=== PATIENT | male | born 1955 | race Caucasian/White ===

== ENCOUNTER 2021-10-27 13:48 | Emergency (ER) | payer MEDICARE, OTHER ==
[2021-10-27 15:02] LABS: #Eosinphils 0.1 10x3/uL (0.0-0.5); #Monocytes 0.3 10x3/uL (0.0-1.1); #Neutrophils 3.9 10x3/uL (1.5-8.4); %Basophils 0.4 % (0.0-2.0); %Eosinophils 1.3 % (0.0-6.0); %Lymphocytes 9.6 % (18.0-47.0); %Monocytes 5.3 % (0.0-10.0); Hemoglobin 11.1 g/dL (13.5-17.5); Mean Corpuscular HGB CONC 33.3 g/dL (32.0-36.0); Mean Corpuscular Hemoglobin 29.8 pg (27.0-33.0); Mean Corpuscular Volume 89.3 fl (81.2-95.1); Platelet Count 160 10x3/uL (150-450); RBC Distribution Width 16.2 % (11.5-14.5); Red Blood Cell (RBC) Count 3.73 10x6/uL (4.32-5.72); White Blood Cell (WBC) Count 4.7 10x3/uL (3.5-10.5)
[2021-10-27 15:14] LABS: ALT (SGPT) 19 U/L (8-55); AST (SGOT) 20 U/L (5-34); Alkaline Phosphatase 61 U/L (40-110); Anion Gap 13 mmol/L (10-20); BUN (Urea Nitrogen) 22 mg/dL (8.4-25.7); Bilirubin, Total 0.9 mg/dL (0.2-1.2); Calc. Creatinine Clearance 0 mL/min (70-130); Carbon Dioxide 25 mmol/L (23-31); Chloride 102 mmol/L (98-107); Globulin 2.4 g/dL (2.4-3.5); Glucose 138 mg/dL (80-115); Potassium 4.3 mmol/L (3.5-5.1); Protein, Total 6.4 g/dL (5.8-8.1); Sodium 136 mmol/L (136-145)
[2021-10-27] MEDS ORDERED: Zoledronic Acid 4 MG in Sodium Chloride 0.9% 100 ML IVPB SCH (16:45)
== END 2021-10-27 18:25 | disposition home or self-care (01) ==
LOC: CSHERS 13:48
DX: E83.52 Hypercalcemia (principal); I10 Essential (primary) hypertension; E11.9 Type 2 diabetes mellitus without complications; Z79.899 Other long term (current) drug therapy
CPT/HCPCS: 80053; 84484; 85025; 93005; 96365; 99283; J3489; 36415; J3490

== ENCOUNTER 2022-08-30 14:46 | Outpatient (CLI) | payer MEDICARE, OTHER | END 2022-08-30 14:47 | disposition home or self-care (01) | LOC: CSHRAD 14:46 | PROVIDERS: ATTEND Student in an Organized Health Care Education/Training Program | DX: Z01.818 Encounter for other preprocedural examination (principal); R59.0 Localized enlarged lymph nodes | CPT/HCPCS: 71046 ==

== ENCOUNTER 2022-09-12 12:28 | Outpatient (CLI) | payer MEDICARE, OTHER | END 2022-09-12 12:29 | disposition home or self-care (01) | LOC: CSHCP 12:28 | PROVIDERS: ATTEND Student in an Organized Health Care Education/Training Program | DX: Z01.818 Encounter for other preprocedural examination (principal); J44.9 Chronic obstructive pulmonary disease, unspecified | CPT/HCPCS: 94010; 94726; 94729; 94760 ==

== ENCOUNTER 2022-10-27 22:18 | Inpatient (IN) | payer MEDICARE, OTHER ==
[2022-10-27 23:11] LABS: #Eosinphils 0.1 10x3/uL (0.0-0.5); #Monocytes 0.4 10x3/uL (0.0-1.1); #Neutrophils 2.3 10x3/uL (1.5-8.4); %Basophils 0.9 % (0.0-2.0); %Eosinophils 3.6 % (0.0-6.0); %Lymphocytes 14.5 % (18.0-47.0); %Monocytes 11.3 % (0.0-10.0); %Neutrophils 69.4 % (40.0-75.0); Hemoglobin 6.3 g/dL (13.5-17.5); Mean Corpuscular HGB CONC 30.3 g/dL (32.0-36.0); Mean Corpuscular Hemoglobin 27.6 pg (27.0-33.0); Mean Corpuscular Volume 91.2 fl (81.2-95.1); Mean Platelet Volume 8.4 fl (7.4-10.4); Platelet Count 178 10x3/uL (150-450); RBC Distribution Width 16.6 % (11.5-14.5); Red Blood Cell (RBC) Count 2.28 10x6/uL (4.32-5.72); White Blood Cell (WBC) Count 3.4 10x3/uL (3.5-10.5)
[2022-10-27 23:27] LABS: Anion Gap 11 mmol/L (10-20); BUN (Urea Nitrogen) 33 mg/dL (8.4-25.7); Calc. Creatinine Clearance 0 mL/min (70-130); Calcium 10.2 mg/dL (7.8-10.44); Carbon Dioxide 26 mmol/L (23-31); Chloride 104 mmol/L (98-107); Estimated GFR 56; Glucose 185 mg/dL (80-115); Potassium 4.1 mmol/L (3.5-5.1); Sodium 137 mmol/L (136-145)
[2022-10-27] MEDS ORDERED: Pantoprazole 80 MG, Admixture Fee 1 EACH in Sodium Chloride 0.9% 100 ML IVPB SCH (23:45)
[2022-10-27] MEDS ORDERED: Pantoprazole 40 MG VIAL ONE (23:49)
[2022-10-27] MEDS ORDERED: methylPREDNISolone Sod Succ/PF 125 MG/2 ML VIAL ONE (23:49)
[2022-10-28] MEDS ORDERED: Ondansetron ODT 4 MG TAB PO PRN (00:16)
[2022-10-28] MEDS ORDERED: Ondansetron PF 4 MG/2 ML Vial IVP PRN (00:16)
[2022-10-28] MEDS ORDERED: Glucagon 1 MG/ML KIT IM PRN (00:22)
[2022-10-28] MEDS ORDERED: Dextrose 50% Abboject 50 ML SYRINGE SLOW IVP PRN (00:22)
[2022-10-28] MEDS ORDERED: HumaLOG 300 UNITS/3 ML VIAL SC PRN (00:22)
[2022-10-28] MEDS ORDERED: Dextrose 5% in Water 1,000 ML IV PRN (00:22)
[2022-10-28] MEDS ORDERED: GoLYTELY 4,000 ml Bottle PO SCH (01:00)
[2022-10-28 01:29] VITALS: BMI 24.0
[2022-10-28] MEDS: Sodium Chloride 0.9% 1,000 ML IV SCH ×2 (02:13→13:19)
[2022-10-28 03:10] LABS: Bilirubin Neg (Negative); Blood, Urine Negative (Negative); Clarity Clear (Clear); Glucose, Urine (Dipstick) 50 mg/dL (Negative); Ketone, Urine Negative (Negative); Leukocyte Negative (Negative); Nitrite Negative (Negative); Protein, Urine (Dipstick) Negative (Neg-Trace); Urobilinogen Normal mg/dL (Less than 2)
[2022-10-28 03:18] LABS: Bacteria/HPF None Seen HPF (None Seen); RBC/HPF None Seen HPF (0-3); Squamous Epithelial None Seen HPF (0-3); WBC/HPF 0-3 HPF (0-3)
[2022-10-28 05:38] LABS: PTT 25.7 sec (22.0-33.0); Prothrombin Time 10.8 sec (9.5-12.1)
[2022-10-28 05:43] LABS: ALT (SGPT) 15 U/L (8-55); AST (SGOT) 20 U/L (5-34); Albumin 4.1 g/dL (3.4-4.8); Alkaline Phosphatase 61 U/L (40-110); Anion Gap 17 mmol/L (10-20); BUN (Urea Nitrogen) 30 mg/dL (8.4-25.7); Bilirubin, Total 1.5 mg/dL (0.2-1.2); Calc. Creatinine Clearance 56 mL/min (70-130); Calcium 9.9 mg/dL (7.8-10.44); Carbon Dioxide 21 mmol/L (23-31); Chloride 104 mmol/L (98-107); Estimated GFR 57; Globulin 2.8 g/dL (2.4-3.5); Glucose 243 mg/dL (80-115); Potassium 4.4 mmol/L (3.5-5.1); Protein, Total 6.9 g/dL (5.8-8.1); Sodium 138 mmol/L (136-145)
[2022-10-28 08:03] LABS: Hemoglobin 7.5 g/dL (13.5-17.5)
[2022-10-28] MEDS ORDERED: Non-Formulary Medication 1 EACH (Semaglutide [Ozempic] 1 MG/0.75 ML Pen.Injctr) SQ SCH (09:00)
[2022-10-28] MEDS ORDERED: GoLYTELY 4,000 ml Bottle PO ONE (09:30)
[2022-10-28 11:21] LABS: Hemoglobin 7.6 g/dL (13.5-17.5)
[2022-10-28] MEDS: Pantoprazole 80 MG, Admixture Fee 1 EACH in Sodium Chloride 0.9% 100 ML IVPB SCH (14:00)
[2022-10-28] MEDS ORDERED: Ketamine 50 MG/ML (10ML VIAL) ONE (16:40)
[2022-10-28] MEDS ORDERED: Lidocaine 1% PF 5 ML VIAL ONE (16:44)
[2022-10-28] MEDS ORDERED: Glycopyrrolate 0.2 MG/ML 5 ML SYRINGE ONE (16:44)
[2022-10-28] MEDS ORDERED: PROPOFOL 40 ML ONE (16:44)
[2022-10-28] MEDS ORDERED: Midazolam HCl 2 mg/2 ml Vial ONE (16:44)
[2022-10-28] MEDS ORDERED: PROPOFOL 20 ML ONE (17:24)
[2022-10-29] MEDS: Pantoprazole 80 MG, Admixture Fee 1 EACH in Sodium Chloride 0.9% 100 ML IVPB SCH (01:16)
[2022-10-29] MEDS: Sodium Chloride 0.9% 1,000 ML IV SCH (05:26)
[2022-10-29 05:59] LABS: #Eosinphils 0.1 10x3/uL (0.0-0.5); #Monocytes 0.3 10x3/uL (0.0-1.1); #Neutrophils 2.3 10x3/uL (1.5-8.4); %Basophils 0.6 % (0.0-2.0); %Eosinophils 1.9 % (0.0-6.0); %Lymphocytes 13.7 % (18.0-47.0); %Monocytes 9.5 % (0.0-10.0); Hemoglobin 6.5 g/dL (13.5-17.5); Mean Corpuscular HGB CONC 31.1 g/dL (32.0-36.0); Mean Corpuscular Hemoglobin 27.9 pg (27.0-33.0); Mean Corpuscular Volume 89.7 fl (81.2-95.1); Mean Platelet Volume 9.1 fl (7.4-10.4); Platelet Count 177 10x3/uL (150-450); RBC Distribution Width 16.9 % (11.5-14.5); Red Blood Cell (RBC) Count 2.33 10x6/uL (4.32-5.72); White Blood Cell (WBC) Count 3.2 10x3/uL (3.5-10.5)
[2022-10-29 06:13] LABS: Iron 11 ug/dL (65-175); Iron Binding Capacity, Total 270 mcg/dL (261-462)
[2022-10-29 06:18] LABS: Anion Gap 10 mmol/L (10-20); BUN (Urea Nitrogen) 19 mg/dL (8.4-25.7); Calc. Creatinine Clearance 76 mL/min (70-130); Calcium 7.9 mg/dL (7.8-10.44); Carbon Dioxide 25 mmol/L (23-31); Chloride 110 mmol/L (98-107); Estimated GFR 81; Glucose 144 mg/dL (80-115); Iron 10 ug/dL (65-175); Iron Binding Capacity, Total 274 mcg/dL (261-462); Potassium 3.3 mmol/L (3.5-5.1); Sodium 142 mmol/L (136-145)
[2022-10-29] MEDS ORDERED: Ferrous Sulfate 325 MG TAB PO SCH ×2 (09:00→17:00)
[2022-10-29] MEDS ORDERED: Potassium Bicarbonate/Cit Ac 20 MEQ TAB PO SCH (09:00)
[2022-10-29 16:19] VITALS: BP 157/75; TEMP 98
[2022-10-29 16:30] LABS: Hemoglobin 7.9 g/dL (13.5-17.5)
== END 2022-10-29 17:57 | disposition home or self-care (01) | DRG 378 ==
LOC: CSHERS 22:18 → CSHTELE 10-28 00:49 → OBSVTOIN 10-28 00:49
PROVIDERS: ADMIT Family Medicine; ATTEND Internal Medicine
PROC: 0DJ08ZZ Inspection of Upper Intestinal Tract, Via Natural or Artificial Opening Endoscopic (ICD-10-PCS; principal; 2022-10-28)
PROC: 0DJD8ZZ Inspection of Lower Intestinal Tract, Via Natural or Artificial Opening Endoscopic (ICD-10-PCS; 2022-10-28)
PROC: 30233N1 Transfusion of Nonautologous Red Blood Cells into Peripheral Vein, Percutaneous Approach (ICD-10-PCS; 2022-10-28)
DX: K92.2 Gastrointestinal hemorrhage, unspecified (principal); K51.90 Ulcerative colitis, unspecified, without complications; K59.09 Other constipation; E78.5 Hyperlipidemia, unspecified; I12.9 Hypertensive chronic kidney disease with stage 1 through stage 4 chronic kidney disease, or unspecified chronic kidney disease; E11.22 Type 2 diabetes mellitus with diabetic chronic kidney disease; N18.31 Chronic kidney disease, stage 3a; I25.10 Atherosclerotic heart disease of native coronary artery without angina pectoris; D86.9 Sarcoidosis, unspecified; E83.52 Hypercalcemia; K64.4 Residual hemorrhoidal skin tags; K64.8 Other hemorrhoids; K57.30 Diverticulosis of large intestine without perforation or abscess without bleeding; D50.9 Iron deficiency anemia, unspecified; Z79.82 Long term (current) use of aspirin; Z79.84 Long term (current) use of oral hypoglycemic drugs; Z79.899 Other long term (current) drug therapy; Z98.890 Other specified postprocedural states; Z85.828 Personal history of other malignant neoplasm of skin; Z79.4 Long term (current) use of insulin; Z90.49 Acquired absence of other specified parts of digestive tract
CPT/HCPCS: 36415; 36416; 36430; 80048; 80053; 81001; 82728; 83540; 83550; 83735; 85014; 85018; 85025; 85610; 85730; 86850; 86900; 86901; 93005; 93010; 96365; 96375; 96376; C9113; J2250; J2704; J2930; J3490; J7050; P9016

== ENCOUNTER 2023-05-24 10:33 | Inpatient (IN) | payer MEDICARE, OTHER ==
[2023-05-24 11:40] LABS: #Monocytes 0.5 10x3/uL (0.0-1.1); #Neutrophils 8.6 10x3/uL (1.5-8.4); %Basophils 0.1 % (0.0-2.0); %Eosinophils 0.3 % (0.0-6.0); %Lymphocytes 1.4 % (18.0-47.0); %Neutrophils 92.1 % (40.0-75.0); Hematocrit 21.8 % (38.8-50.0); Hemoglobin 6.8 g/dL (13.5-17.5); Mean Corpuscular HGB CONC 31.2 g/dL (32.0-36.0); Mean Corpuscular Hemoglobin 29.8 pg (27.0-33.0); Mean Corpuscular Volume 95.6 fl (81.2-95.1); Mean Platelet Volume 9.7 fl (7.4-10.4); Platelet Count 187 10x3/uL (150-450); RBC Distribution Width 18.4 % (11.5-14.5); Red Blood Cell (RBC) Count 2.28 10x6/uL (4.32-5.72); White Blood Cell (WBC) Count 9.4 10x3/uL (3.5-10.5)
[2023-05-24 11:54] LABS: ALT (SGPT) 28 U/L (8-55); AST (SGOT) 36 U/L (5-34); Albumin 2.7 g/dL (3.4-4.8); Alkaline Phosphatase 92 U/L (40-110); Anion Gap 15 mmol/L (10-20); BUN (Urea Nitrogen) 60 mg/dL (8.4-25.7); Bilirubin, Total 0.5 mg/dL (0.2-1.2); Calc. Creatinine Clearance 0 mL/min (70-130); Calcium 7.9 mg/dL (7.8-10.44); Carbon Dioxide 20 mmol/L (23-31); Chloride 103 mmol/L (98-107); Estimated GFR 49; Globulin 2.4 g/dL (2.4-3.5); Glucose 122 mg/dL (80-115); Lipase 12 U/L (8-78); Potassium 3.8 mmol/L (3.5-5.1); Protein, Total 5.1 g/dL (5.8-8.1); Sodium 134 mmol/L (136-145)
[2023-05-24 12:01] LABS: Troponin I Less than 0.010 ng/mL (< 0.028)
[2023-05-24] MEDS ORDERED: Ondansetron ODT 4 MG TAB PO PRN (12:50)
[2023-05-24] MEDS ORDERED: Ondansetron PF 4 MG/2 ML Vial IVP PRN (12:50)
[2023-05-24] MEDS ORDERED: Acetaminophen 325 MG TAB PO PRN (12:50)
[2023-05-24] MEDS ORDERED: Glucagon 1 MG/ML KIT IM PRN (12:56)
[2023-05-24] MEDS ORDERED: Dextrose 50% Abboject 50 ML SYRINGE SLOW IVP PRN (12:56)
[2023-05-24] MEDS ORDERED: Dextrose 5% in Water 1,000 ML IV PRN (12:56)
[2023-05-24] MEDS ORDERED: HYDROcodone/Acetaminophen 7.5/325 mg Tablet PO PRN (13:30)
[2023-05-24] MEDS ORDERED: Ipratropium/Albuterol 3 ML NEB NEB PRN (13:41)
[2023-05-24] MEDS ORDERED: Lactated Ringer's 500 ML IV SCH (16:45)
[2023-05-24] MEDS: Albumin 25% 25 GM (100 mL) BOT IVPB SCH ×2 (18:39→23:41)
[2023-05-24 20:21] VITALS: BMI 29.9
[2023-05-25 06:12] LABS: #Monocytes 0.5 10x3/uL (0.0-1.1); #Neutrophils 6.3 10x3/uL (1.5-8.4); %Basophils 0.1 % (0.0-2.0); %Eosinophils 0.1 % (0.0-6.0); %Monocytes 6.4 % (0.0-10.0); %Neutrophils 89.4 % (40.0-75.0); Hematocrit 22.1 % (38.8-50.0); Hemoglobin 7.1 g/dL (13.5-17.5); Mean Corpuscular HGB CONC 32.1 g/dL (32.0-36.0); Mean Corpuscular Hemoglobin 29.8 pg (27.0-33.0); Mean Corpuscular Volume 92.9 fl (81.2-95.1); Mean Platelet Volume 9.7 fl (7.4-10.4); Platelet Count 160 10x3/uL (150-450); RBC Distribution Width 17.9 % (11.5-14.5); Red Blood Cell (RBC) Count 2.38 10x6/uL (4.32-5.72); White Blood Cell (WBC) Count 7.1 10x3/uL (3.5-10.5)
[2023-05-25 06:16] LABS: Anion Gap 17 mmol/L (10-20); BUN (Urea Nitrogen) 59 mg/dL (8.4-25.7); Calc. Creatinine Clearance 67 mL/min (70-130); Calcium 8.1 mg/dL (7.8-10.44); Carbon Dioxide 18 mmol/L (23-31); Chloride 105 mmol/L (98-107); Estimated GFR 54; Glucose 169 mg/dL (80-115); Potassium 3.5 mmol/L (3.5-5.1); Sodium 136 mmol/L (136-145)
[2023-05-25] MEDS: HumaLOG 300 UNITS/3 ML VIAL SC PRN ×2 (06:22→22:06)
[2023-05-25] MEDS ORDERED: Lorazepam 0.5 MG TAB PO PRN (07:16)
[2023-05-25] MEDS ORDERED: Lorazepam 2 MG/ML VIAL SLOW IVP SCH (08:00)
[2023-05-25] MEDS: Pantoprazole 40 MG VIAL IVP SCH ×2 (08:47→21:36)
[2023-05-25] MEDS ORDERED: Morphine 4 MG/ML VIAL SLOW IVP PRN (15:25)
[2023-05-25] MEDS ORDERED: Morphine 2 MG/ML VIAL SLOW IVP PRN (15:25)
[2023-05-25 16:44] LABS: Hematocrit 24.9 % (38.8-50.0)
[2023-05-25] MEDS: Ipratropium/Albuterol 3 ML NEB NEB SCH (19:10)
[2023-05-25] MEDS ORDERED: Zolpidem Tartrate 5 MG TAB PO SCH (21:45)
[2023-05-26] MEDS: Ipratropium/Albuterol 3 ML NEB NEB SCH ×4 (01:10→19:42)
[2023-05-26] MEDS ORDERED: Lorazepam 2 MG/ML VIAL SLOW IVP SCH (02:00)
[2023-05-26] MEDS ORDERED: ALPRAZolam 1 MG TAB PO SCH (05:00)
[2023-05-26] MEDS: HumaLOG 300 UNITS/3 ML VIAL SC PRN ×3 (05:52→20:31)
[2023-05-26 06:11] LABS: #Monocytes 0.5 10x3/uL (0.0-1.1); #Neutrophils 8.3 10x3/uL (1.5-8.4); %Basophils 0.1 % (0.0-2.0); %Eosinophils 0.1 % (0.0-6.0); %Lymphocytes 1.4 % (18.0-47.0); %Monocytes 5.2 % (0.0-10.0); %Neutrophils 91.4 % (40.0-75.0); Hematocrit 25.1 % (38.8-50.0); Hemoglobin 7.9 g/dL (13.5-17.5); Mean Corpuscular HGB CONC 31.5 g/dL (32.0-36.0); Mean Corpuscular Hemoglobin 29.5 pg (27.0-33.0); Mean Corpuscular Volume 93.7 fl (81.2-95.1); Mean Platelet Volume 9.9 fl (7.4-10.4); Platelet Count 151 10x3/uL (150-450); RBC Distribution Width 18.2 % (11.5-14.5); Red Blood Cell (RBC) Count 2.68 10x6/uL (4.32-5.72)
[2023-05-26 06:22] LABS: Anion Gap 15 mmol/L (10-20); BUN (Urea Nitrogen) 43 mg/dL (8.4-25.7); Calc. Creatinine Clearance 81 mL/min (70-130); Calcium 8.5 mg/dL (7.8-10.44); Carbon Dioxide 21 mmol/L (23-31); Chloride 106 mmol/L (98-107); Estimated GFR 68; Glucose 235 mg/dL (80-115); Magnesium 1.6 mg/dL (1.6-2.6); Potassium 3.8 mmol/L (3.5-5.1); Sodium 138 mmol/L (136-145)
[2023-05-26 06:31] LABS: Phosphorus 1.8 mg/dL (2.3-4.7)
[2023-05-26] MEDS: Atorvastatin Calcium 40 MG TAB PO SCH (09:39)
[2023-05-26] MEDS: Pantoprazole 40 MG VIAL IVP SCH ×2 (09:39→20:31)
[2023-05-26] MEDS ORDERED: Hydrocodone-Acetamin 15 ML UDCUP PO PRN (09:47)
[2023-05-26] MEDS: Hydrocodone-Acetamin 15 ML UDCUP PO PRN ×2 (09:51→18:37)
[2023-05-27] MEDS: Ipratropium/Albuterol 3 ML NEB NEB SCH ×4 (01:58→19:28)
[2023-05-27 05:35] LABS: #Monocytes 0.4 10x3/uL (0.0-1.1); #Neutrophils 4.8 10x3/uL (1.5-8.4); %Basophils 0.2 % (0.0-2.0); %Eosinophils 0.7 % (0.0-6.0); %Lymphocytes 1.5 % (18.0-47.0); %Monocytes 6.4 % (0.0-10.0); Hematocrit 23.6 % (38.8-50.0); Hemoglobin 7.5 g/dL (13.5-17.5); Mean Corpuscular HGB CONC 31.8 g/dL (32.0-36.0); Mean Corpuscular Volume 94.4 fl (81.2-95.1); Mean Platelet Volume 9.8 fl (7.4-10.4); Platelet Count 126 10x3/uL (150-450); RBC Distribution Width 17.9 % (11.5-14.5); White Blood Cell (WBC) Count 5.4 10x3/uL (3.5-10.5)
[2023-05-27 05:49] LABS: Anion Gap 13 mmol/L (10-20); BUN (Urea Nitrogen) 28 mg/dL (8.4-25.7); Calc. Creatinine Clearance 94 mL/min (70-130); Calcium 8.4 mg/dL (7.8-10.44); Carbon Dioxide 26 mmol/L (23-31); Chloride 106 mmol/L (98-107); Estimated GFR 81; Glucose 297 mg/dL (80-115); Potassium 3.5 mmol/L (3.5-5.1); Sodium 141 mmol/L (136-145)
[2023-05-27] MEDS: HumaLOG 300 UNITS/3 ML VIAL SC PRN ×2 (05:50→19:36)
[2023-05-27] MEDS: Atorvastatin Calcium 40 MG TAB PO SCH (08:59)
[2023-05-27] MEDS: Pantoprazole 40 MG VIAL IVP SCH ×2 (08:59→20:46)
[2023-05-27] MEDS ORDERED: Morphine 2 MG/ML VIAL SLOW IVP PRN (11:44)
[2023-05-27] MEDS ORDERED: Morphine 4 MG/ML VIAL SLOW IVP PRN (11:44)
[2023-05-27] MEDS ORDERED: HYDROmorphone 0.5 MG/0.5 ML SYRINGE SLOW IVP SCH (11:45)
[2023-05-27] MEDS: Hydrocodone-Acetamin 15 ML UDCUP PO PRN (19:36)
[2023-05-27] MEDS: Zolpidem Tartrate 5 MG TAB PO PRN (23:20)
[2023-05-28] MEDS: Ipratropium/Albuterol 3 ML NEB NEB SCH ×4 (01:49→19:00)
[2023-05-28 05:47] LABS: #Monocytes 0.4 10x3/uL (0.0-1.1); #Neutrophils 4.6 10x3/uL (1.5-8.4); %Basophils 0.2 % (0.0-2.0); %Eosinophils 0.2 % (0.0-6.0); %Lymphocytes 1.3 % (18.0-47.0); %Monocytes 7.4 % (0.0-10.0); %Neutrophils 87.3 % (40.0-75.0); Hematocrit 26.4 % (38.8-50.0); Hemoglobin 8.2 g/dL (13.5-17.5); Mean Corpuscular HGB CONC 31.1 g/dL (32.0-36.0); Mean Corpuscular Hemoglobin 29.6 pg (27.0-33.0); Mean Corpuscular Volume 95.3 fl (81.2-95.1); Platelet Count 139 10x3/uL (150-450); RBC Distribution Width 18.5 % (11.5-14.5); Red Blood Cell (RBC) Count 2.77 10x6/uL (4.32-5.72); White Blood Cell (WBC) Count 5.3 10x3/uL (3.5-10.5)
[2023-05-28 05:58] LABS: Anion Gap 13 mmol/L (10-20); BUN (Urea Nitrogen) 17 mg/dL (8.4-25.7); Calc. Creatinine Clearance 108 mL/min (70-130); Calcium 8.7 mg/dL (7.8-10.44); Carbon Dioxide 25 mmol/L (23-31); Chloride 107 mmol/L (98-107); Estimated GFR 94; Glucose 282 mg/dL (80-115); Potassium 3.7 mmol/L (3.5-5.1); Sodium 141 mmol/L (136-145)
[2023-05-28] MEDS: HumaLOG 300 UNITS/3 ML VIAL SC PRN ×2 (06:48→21:02)
[2023-05-28] MEDS: Atorvastatin Calcium 40 MG TAB PO SCH (09:30)
[2023-05-28] MEDS: Pantoprazole 40 MG VIAL IVP SCH (09:30)
[2023-05-28] MEDS ORDERED: Morphine 4 MG/ML VIAL SLOW IVP PRN (16:02)
[2023-05-28] MEDS: Hydrocodone-Acetamin 15 ML UDCUP PO PRN (16:24)
[2023-05-28] MEDS: Zolpidem Tartrate 5 MG TAB PO PRN (21:02)
[2023-05-29] MEDS: Ipratropium/Albuterol 3 ML NEB NEB SCH ×4 (01:25→19:16)
[2023-05-29] MEDS ORDERED: dilTIAZem 25 MG/5 ML VIAL ONE (01:35)
[2023-05-29] MEDS ORDERED: dilTIAZem 25 MG/5 ML VIAL SLOW IVP SCH ×2 (01:45→02:45)
[2023-05-29 02:06] LABS: #Monocytes 0.5 10x3/uL (0.0-1.1); #Neutrophils 3.1 10x3/uL (1.5-8.4); %Eosinophils 0.3 % (0.0-6.0); %Lymphocytes 3.7 % (18.0-47.0); %Monocytes 12.7 % (0.0-10.0); %Neutrophils 81.2 % (40.0-75.0); Hematocrit 26.8 % (38.8-50.0); Hemoglobin 8.3 g/dL (13.5-17.5); Mean Corpuscular Hemoglobin 29.5 pg (27.0-33.0); Mean Corpuscular Volume 95.4 fl (81.2-95.1); Mean Platelet Volume 9.4 fl (7.4-10.4); Platelet Count 135 10x3/uL (150-450); RBC Distribution Width 18.5 % (11.5-14.5); Red Blood Cell (RBC) Count 2.81 10x6/uL (4.32-5.72); White Blood Cell (WBC) Count 3.8 10x3/uL (3.5-10.5)
[2023-05-29 02:24] LABS: Anion Gap 12 mmol/L (10-20); BUN (Urea Nitrogen) 14 mg/dL (8.4-25.7); Calc. Creatinine Clearance 123 mL/min (70-130); Calcium 8.6 mg/dL (7.8-10.44); Carbon Dioxide 28 mmol/L (23-31); Chloride 105 mmol/L (98-107); Estimated GFR 98; Glucose 180 mg/dL (80-115); Potassium 3.8 mmol/L (3.5-5.1); Sodium 141 mmol/L (136-145)
[2023-05-29] MEDS ORDERED: Furosemide 40 MG (4 mL) VIAL SLOW IVP SCH (02:45)
[2023-05-29] MEDS ORDERED: Potassium Chloride 20 MEQ TAB PO SCH (02:45)
[2023-05-29] MEDS: Aspirin 81 mg Enteric Coated Tablet PO SCH (09:33)
[2023-05-29] MEDS: Atorvastatin Calcium 40 MG TAB PO SCH (09:33)
[2023-05-29] MEDS: Ferrous Sulfate 325 MG TAB PO SCH (09:33)
[2023-05-29] MEDS: Amlodipine 5 MG TAB PO SCH (09:33)
[2023-05-29] MEDS ORDERED: Lidocaine 1% PF 5 ML VIAL ONE (11:02)
[2023-05-29 12:37] LABS: BF Color Yellow; Body Fluid Source Ascites Body Fluid; Clarity Clear (Clear); Tube # EDTA
[2023-05-29] MEDS: HumaLOG 300 UNITS/3 ML VIAL SC PRN ×2 (12:52→17:12)
[2023-05-29 13:20] LABS: BF Segmented Neutrophils 8 %; Cell Count Non Hematic 25 %; Lymphocytes 67 %
[2023-05-29] MEDS ORDERED: BUPRENORPHINE 10 MCG TD SCH (17:00)
[2023-05-29] MEDS ORDERED: PATIENT'S HOME MEDICATION TD SCH (17:00)
[2023-05-29] MEDS: Zolpidem Tartrate 5 MG TAB PO PRN (20:37)
[2023-05-30] MEDS: Ipratropium/Albuterol 3 ML NEB NEB SCH ×3 (01:08→12:30)
[2023-05-30] MEDS ORDERED: Guaifenesin DM 100-10/5 ML UDCUP PO PRN (01:24)
[2023-05-30] MEDS: HumaLOG 300 UNITS/3 ML VIAL SC PRN ×2 (05:48→12:15)
[2023-05-30] MEDS: Aspirin 81 mg Enteric Coated Tablet PO SCH (08:38)
[2023-05-30] MEDS: Ferrous Sulfate 325 MG TAB PO SCH (08:38)
[2023-05-30] MEDS: Atorvastatin Calcium 40 MG TAB PO SCH (08:38)
[2023-05-30] MEDS: Amlodipine 5 MG TAB PO SCH (08:39)
[2023-05-30] MEDS ORDERED: Polyethylene Glycol 3350 17 GM Packet PO SCH (09:00)
[2023-05-30] MEDS ORDERED: Senokot 8.6 MG TAB PO SCH (09:00)
[2023-05-30 12:18] VITALS: BP 170/77; TEMP 97.7
== END 2023-05-30 15:00 | disposition home health service (06) | DRG 812 ==
LOC: CSHERS 10:33 → CSHERHOLD 12:54 → CSHTELE 20:20
PROVIDERS: ADMIT Family Medicine; ATTEND Family Medicine
PROC: 30233N1 Transfusion of Nonautologous Red Blood Cells into Peripheral Vein, Percutaneous Approach (ICD-10-PCS; 2023-05-24)
PROC: 0W9G3ZZ Drainage of Peritoneal Cavity, Percutaneous Approach (ICD-10-PCS; principal; 2023-05-29)
DX: D64.9 Anemia, unspecified (principal); C25.9 Malignant neoplasm of pancreas, unspecified; C78.89 Secondary malignant neoplasm of other digestive organs; R18.8 Other ascites; I48.91 Unspecified atrial fibrillation; Z51.5 Encounter for palliative care; Z66 Do not resuscitate; E11.9 Type 2 diabetes mellitus without complications; I25.10 Atherosclerotic heart disease of native coronary artery without angina pectoris; I10 Essential (primary) hypertension; E86.0 Dehydration; G47.33 Obstructive sleep apnea (adult) (pediatric); M62.81 Muscle weakness (generalized); D86.9 Sarcoidosis, unspecified; Z90.79 Acquired absence of other genital organ(s); Z90.89 Acquired absence of other organs; Z79.82 Long term (current) use of aspirin; Z79.899 Other long term (current) drug therapy; Z79.4 Long term (current) use of insulin; Z92.21 Personal history of antineoplastic chemotherapy
CPT/HCPCS: 36415; 36416; 36430; 49083; 76705; 80048; 80053; 82040; 82042; 83605; 83690; 83735; 83880; 84100; 84484; 85025; 86850; 86900; 86901; 87070; 87205; 88112; 88305; 89051; 93005; 93010; 94640; 94760; 97139; C9113; J1170; J1815; J1940; J2060; J2272; J7120; J7620; P9016; P9047

== ENCOUNTER 2023-06-22 04:14 | Inpatient (IN) | payer MEDICARE, OTHER ==
[2023-06-22] MEDS ORDERED: DOBUTamine 500 mg/250 ml 250 ML ONE (04:41)
[2023-06-22 05:24] LABS: Analyzer IN Cardio CS ER; Base Excess -22.1 mEq/L (-2 - +2); Chloride (VBG) 98 mmol/L (98-106); Hematocrit-VBG 18 % (42.0-52.0); Potassium (VBG) 6.35 mmol/L (3.70-5.30); Puncture Site Other Site; RapidComm Collect By CBN; Sodium 145 mmol/L (133-146); pH (venous) 6.831 (7.32-7.43)
[2023-06-22 05:25] LABS: Critical Call w/ Read Back ERS.EG @0524; Mean Corpuscular HGB CONC 27.8 g/dL (32.0-36.0); Mean Corpuscular Hemoglobin 29.8 pg (27.0-33.0); Mean Corpuscular Volume 107.1 fl (81.2-95.1); Mean Platelet Volume 11.6 fl (7.4-10.4); Platelet Count 146 10x3/uL (150-450); RBC Distribution Width 18.4 % (11.5-14.5); Red Blood Cell (RBC) Count 1.68 10x6/uL (4.32-5.72); White Blood Cell (WBC) Count 10.9 10x3/uL (3.5-10.5)
[2023-06-22 05:27] LABS: ALT (SGPT) 2217 U/L (8-55); Albumin 2.1 g/dL (3.4-4.8); Alkaline Phosphatase 106 U/L (40-110); Anion Gap 37 mmol/L (10-20); BUN (Urea Nitrogen) 77 mg/dL (8.4-25.7); Bilirubin, Total 0.9 mg/dL (0.2-1.2); Calc. Creatinine Clearance 0 mL/min (70-130); Calcium 7.9 mg/dL (7.8-10.44); Chloride 102 mmol/L (98-107); Estimated GFR 27; Globulin 1.5 g/dL (2.4-3.5); Glucose 221 mg/dL (80-115); Protein, Total 3.6 g/dL (5.8-8.1); Sodium 141 mmol/L (136-145)
[2023-06-22 05:31] LABS: Carbon Dioxide 8 mmol/L (23-31); Potassium 6.3 mmol/L (3.5-5.1)
[2023-06-22 05:33] LABS: Troponin I 0.014 ng/mL (< 0.028)
[2023-06-22 05:35] LABS: AST (SGOT) Greater than 3500 U/L (5-34)
[2023-06-22 05:37] LABS: Acetaminophen Less than 10 mcg/mL (10.0-30.0); Alcohol Less than 10.0 mg/dL (Less than 10); Magnesium 2.1 mg/dL (1.6-2.6); Salicylate Less than 8.0 mg/dL (15.0-30.0)
[2023-06-22 05:43] LABS: Analyzer IN Cardio CS ER; Puncture Site Other Site
[2023-06-22 05:43] LABS: MDiff Complete? YES
[2023-06-22] MEDS ORDERED: Calcium Chloride 1 GM/10 ML Abboject SYRINGE ONE ×2 (05:55→17:00)
[2023-06-22] MEDS ORDERED: Insulin Regular 300 UNITS/3 ML VIAL ONE (05:55)
[2023-06-22] MEDS ORDERED: Sodium Bicarb 50 MEQ/50 ML Abboject 8.4% SYRINGE ONE ×2 (05:55→17:00)
[2023-06-22] MEDS ORDERED: Sodium Bicarbonate 150 mEq in Dextrose 5% IV SCH (06:00)
[2023-06-22] MEDS ORDERED: Hydrocortisone Sod Succ/PF 100 mg/2 ml Vial ONE (07:36)
[2023-06-22] MEDS ORDERED: EPINEPHrine 1 MG/ML VIAL ONE ×3 (07:50→11:15)
[2023-06-22] MEDS ORDERED: EPINEPHrine 1 MG/10 ML Abboject SYRINGE ONE ×2 (07:50→17:00)
[2023-06-22] MEDS ORDERED: Ondansetron PF 4 MG/2 ML Vial IVP PRN (07:52)
[2023-06-22] MEDS ORDERED: DOPamine 400 MG/D5W 250 ML 250 ML IVPB SCH (08:00)
[2023-06-22] MEDS ORDERED: NOREPINEPHRINE 8 MG/250 ML-D5W 250 ML IVPB SCH (08:00)
[2023-06-22 08:13] LABS: SARS-CoV-2 NAA Rapid Test DETECTED (NotDetected)
[2023-06-22] MEDS ORDERED: DOPamine 400 MG/D5W 250 ML 250 ML ONE ×3 (08:36→16:36)
[2023-06-22] MEDS ORDERED: Norepinephrine 4 MG/4 ML VIAL ONE (08:36)
[2023-06-22] MEDS ORDERED: NOREPINEPHRINE 8 MG/250 ML-D5W 250 ML ONE ×3 (08:38→16:36)
[2023-06-22 09:01] LABS: Band 22 % (5-11); Lymphocytes 4 % (21-51); Monocytes 9 % (0-10); Neutrophil 65 % (42-75)
[2023-06-22 09:04] LABS: Anisocytosis MODERATE=16-30 cells (100X) (0-5/hpf); Hypochromia MARKED = >30 cells (100X) (0-5/hpf); Macrocytosis MARKED = >30 cells (100X) (0-5/hpf); Poikilocytosis SLIGHT = 6-15 cells (100X) (0-5/hpf); Polychromasia SLIGHT = 2-3 cells (100X) (0-2/hpf)
[2023-06-22 09:05] LABS: Platelet Adequacy Comment Appears Adequate
[2023-06-22 09:14] LABS: RapidComm Collect By CBN; Sodium 141 mmol/L (133-146)
[2023-06-22] MEDS ORDERED: Sodium Bicarbonate 150 MEQ in Dextrose 5% in Water 1,000 ML IV SCH (09:15)
[2023-06-22 10:29] LABS: Actual Bicarbonate (HCO3v) 8.1 mEq/L (22-28); Calcium, Ionized (venous) 1.03 mmol/L (1.16-1.32); Chloride (VBG) 96 mmol/L (98-106); Hematocrit-VBG 29 % (42.0-52.0); Potassium (VBG) 5.53 mmol/L (3.70-5.30); pH (venous) 6.995 (7.32-7.43)
[2023-06-22 10:58] LABS: Hematocrit 29.7 % (38.8-50.0); Hemoglobin 8.9 g/dL (13.5-17.5)
[2023-06-22] MEDS ORDERED: Dextrose 5% in Water 1,000 ML IV PRN (16:15)
[2023-06-22] MEDS ORDERED: Glucagon 1 MG/ML KIT IM PRN (16:15)
[2023-06-22] MEDS ORDERED: Dextrose 50% Abboject 50 ML SYRINGE SLOW IVP PRN (16:15)
[2023-06-22] MEDS ORDERED: HumaLOG 300 UNITS/3 ML VIAL SC PRN (16:15)
[2023-06-22] MEDS ORDERED: EPINEPHrine 1 mg/ml MDV (1ml Charge) ONE (17:00)
[2023-06-22] MEDS ORDERED: DOPamine/D5W 400 mg/250 ml PREMIX ONE (17:00)
[2023-06-22] MEDS ORDERED: Atropine Sulfate 1 mg/10 ml Syringe ONE (17:00)
[2023-06-22 17:39] VITALS: BMI 28.8
[2023-06-22] MEDS ORDERED: Morphine IR 10 MG/5 ML UDCUP SL PRN (17:42)
[2023-06-22] MEDS: Lorazepam 2 MG/ML VIAL SLOW IVP PRN (17:50)
[2023-06-22] MEDS: Morphine 2 MG/ML VIAL SLOW IVP PRN (17:50)
[2023-06-22 18:06] VITALS: BP 79/38; TEMP 93.9
== END 2023-06-22 21:30 | disposition expired | DRG 208 ==
LOC: SUATTDRO 04:14 → CSHERS 04:14 → CSHERHOLD 10:54 → CSHICU 17:08
PROVIDERS: ADMIT Family Medicine; ATTEND Family Medicine
PROC: 5A1935Z Respiratory Ventilation, Less than 24 Consecutive Hours (ICD-10-PCS; principal; 2023-06-22)
PROC: 0BH17EZ Insertion of Endotracheal Airway into Trachea, Via Natural or Artificial Opening (ICD-10-PCS; 2023-06-22)
PROC: 30233N1 Transfusion of Nonautologous Red Blood Cells into Peripheral Vein, Percutaneous Approach (ICD-10-PCS; 2023-06-22)
PROC: 06HY33Z Insertion of Infusion Device into Lower Vein, Percutaneous Approach (ICD-10-PCS; 2023-06-22)
PROC: 3E033XZ Introduction of Vasopressor into Peripheral Vein, Percutaneous Approach (ICD-10-PCS; 2023-06-22)
DX: J96.90 Respiratory failure, unspecified, unspecified whether with hypoxia or hypercapnia (principal); K51.90 Ulcerative colitis, unspecified, without complications; E87.20 Acidosis, unspecified; C25.9 Malignant neoplasm of pancreas, unspecified; C78.89 Secondary malignant neoplasm of other digestive organs; I46.9 Cardiac arrest, cause unspecified; R57.0 Cardiogenic shock; I25.10 Atherosclerotic heart disease of native coronary artery without angina pectoris; E11.649 Type 2 diabetes mellitus with hypoglycemia without coma; Z66 Do not resuscitate; N40.0 Benign prostatic hyperplasia without lower urinary tract symptoms; D64.9 Anemia, unspecified; I10 Essential (primary) hypertension; E11.9 Type 2 diabetes mellitus without complications; Z79.82 Long term (current) use of aspirin; Z79.899 Other long term (current) drug therapy; Z79.4 Long term (current) use of insulin; Z79.84 Long term (current) use of oral hypoglycemic drugs; Z98.890 Other specified postprocedural states; Z85.828 Personal history of other malignant neoplasm of skin; Z87.09 Personal history of other diseases of the respiratory system; Z90.49 Acquired absence of other specified parts of digestive tract; Z79.891 Long term (current) use of opiate analgesic; Z51.5 Encounter for palliative care
CPT/HCPCS: 31500; 36416; 36430; 36556; 51702; 71045; 80053; 80307; 82805; 83735; 84484; 85025; 86850; 86900; 86901; 86922; 92950; 93005; 93010; 94002; 94760; 96365; 96366; 96368; 96375; 99292; J0171; J0461; J1250; J1265; J1720; J1815; J2060; J2272; J7070; P9016